=== PATIENT | male | born 1940 | race Two or more races ===

== ENCOUNTER 2022-01-03 17:38 | Emergency (ER) | payer OTHER ==
[~2022-01-03] VITALS: Ht 165.1 cm; Wt 59.0 kg
--- NOTE | 2022-01-03 17:38 | NUR ---
PT BIBA [id number] FROM BUS STOP C/O NOSE BLEEDING "ITS BEEN GOING ON AND OFF FOR 6 MONS" PT IS AAOX3, NOT IN RESPIRATORY DISTRESS, HOOKED TO V/S MONITOR, KEPT RESTED AND COMFORTABLE. WILL CONTINUE TO MONITOR.
[2022-01-03 17:40] VITALS: BP 132/64
--- NOTE | 2022-01-03 18:35 | NUR ---
Patient discharged to home in stable condition. Written and verbal after care instructions given. Patient verbalizes understanding of instruction.
== END 2022-01-03 18:36 | disposition home or self-care (01) ==
LOC: ER 17:56
DX: R04.0 Epistaxis (principal); I10 Essential (primary) hypertension; E11.9 Type 2 diabetes mellitus without complications; Z95.5 Presence of coronary angioplasty implant and graft; Z88.0 Allergy status to penicillin

== ENCOUNTER 2022-07-08 14:02 | Emergency (ER) | payer MEDICARE, OTHER ==
[~2022-07-08] VITALS: Ht 165.1 cm; Wt 56.7 kg
[2022-07-08] MEDS ORDERED: IV NS 0.9% 1,000 ML BAG IV ONE (14:30)
[2022-07-08] MEDS ORDERED: ONDANSETRON HCL/PF 4 MG/2 ML VIAL IVP ONE (14:30)
[2022-07-08] MEDS ORDERED: ONDANSETRON HCL/PF 4 MG/2 ML VIAL ONE (14:33)
[2022-07-08 15:53] LABS: BASOPHILS % (AUTO) 0.2 % (0.0-2.0); EOSINOPHILS % (AUTO) 11.4 % (0.0-6.0); HEMATOCRIT 33 % (39-51); HEMOGLOBIN 10.5 g/dL (13.5-17.5); LYMPHOCYTES % (AUTO) 26.4 % (20.0-44.0); MEAN CORPUSCULAR HGB CONC 32 g/dl (31.0-36.0); MEAN CORPUSCULAR VOLUME 83 fL (80-96); MONOCYTES # (AUTO) 0.3 K/uL (0.1-1.30); MONOCYTES % (AUTO) 8.2 % (2.0-12.0); NEUTROPHILS % (AUTO) 53.8 % (43.0-81.0); PLATELET COUNT (AUTO) 162 K/uL (150-450); RED BLOOD CELL COUNT(AUTO) 3.93 MIL/uL (4.5-6.0); WHITE BLOOD COUNT (AUTO) 3.8 K/uL (4.3-11.0)
[2022-07-08 16:00] LABS: CALCIUM, SERUM 9.1 mg/dL (8.5-10.1); CREATININE 0.8 mg/dL (0.6-1.3); POTASSIUM 4.6 mmol/L (3.5-5.1)
[2022-07-08] MEDS ORDERED: ACETAMINOPHEN ES 500 MG TABLET ONE (16:26)
[2022-07-08] MEDS ORDERED: ACETAMINOPHEN ES 500 MG TABLET PO ONE (16:30)
[2022-07-08 17:48] VITALS: BP 132/72
== END 2022-07-08 17:48 | disposition home or self-care (01) ==
LOC: ER 15:15
DX: K06.8 Other specified disorders of gingiva and edentulous alveolar ridge (principal); I10 Essential (primary) hypertension; E11.9 Type 2 diabetes mellitus without complications; Z88.0 Allergy status to penicillin
CPT/HCPCS: 99284; 96374; 96361; 93005; 85025; 80048; 36415; 85730; J2405; J7030